=== PATIENT | female | born 2000 | race African-American/Black ===

== ENCOUNTER 2021-04-03 12:42 | Emergency (ER) | payer OTHER ==
[~2021-04-03] VITALS: Ht 162.6 cm; Wt 68.0 kg
[2021-04-03 13:08] LABS: URINE BILIRUBIN NEGATIVE (Negative); URINE BLOOD NEGATIVE (Negative); URINE CLARITY CLEAR; URINE COLOR YELLOW; URINE GLUCOSE-RANDOM* NEGATIVE (Negative); URINE KETONES NEGATIVE (Negative); URINE LEUKOCYTES-REFLEX NEGATIVE (Negative); URINE NITRITE-REFLEX NEGATIVE (Negative); URINE PROTEIN (DIPSTICK) NEGATIVE (Negative)
[2021-04-03] MEDS ORDERED: BIRTH CONTROL (13:17)
[2021-04-03 13:55] LABS: ABSOLUTE NEUTROPHILS 4.6 thou/uL (1.4-8.2); BASOPHILS 0.6 % (0.0-2.0); EOSINOPHILS 0.7 % (0.0-3.0); HEMATOCRIT 39.2 % (37.0-47.0); HEMOGLOBIN 13.3 gm/dL (12.0-15.0); LYMPHOCYTES 26.4 % (24.0-44.0); MCH 28.5 pg (26.0-34.0); MONOCYTES 8.7 % (1.0-8.0); PLATELET COUNT 294 thou/uL (150-400); POLYS 63.6 % (36.0-66.0); RBC 4.67 mil/uL (4.20-5.00); RDW 13.6 % (10.5-14.5); WBC 7.2 thou/uL (4.0-11.0)
[2021-04-03 14:03] LABS: CREATININE 0.8 mg/dL (0.6-1.0); POTASSIUM 3.8 mmol/L (3.5-5.1)
[2021-04-03 14:09] LABS: ALBUMIN 3.8 g/dL (3.4-5.0); TOTAL BILIRUBIN 0.6 mg/dL (0.2-1.0); TOTAL PROTEIN 7.3 g/dL (6.4-8.2)
[2021-04-03] MEDS ORDERED: LEVSIN0.125 MG PO (15:14)
[2021-04-03 15:24] VITALS: BP 96/55
== END 2021-04-03 15:27 | disposition home or self-care (01) ==
LOC: ER 12:42
PROVIDERS: Physician Assistant
DX: R10.32 Left lower quadrant pain (principal)

== ENCOUNTER 2021-07-30 04:16 | Emergency (ER) | payer OTHER ==
[~2021-07-30] VITALS: Ht 162.6 cm; Wt 67.6 kg
[~2021-07-30 04:16] MED LIST: BIRTH CONTROL; LEVSIN0.125 MG PO
[2021-07-30 04:17] VITALS: BP 119/73
[2021-07-30] MEDS ORDERED: NOHOMEMEDICATIONS (04:21)
== END 2021-07-30 04:53 | disposition home or self-care (01) ==
LOC: ER 04:16
DX: L29.9 Pruritus, unspecified (principal)